=== PATIENT | female | born 1990 | race Caucasian/White ===

== ENCOUNTER → 2016-10-22 | Day surgery (SDC) | payer BC ==
[~2016-10-22] VITALS: Ht 165.1 cm; Wt 132.0 kg
[~2016-10-22] MED LIST: COLACE 100MG C100 MG PO; IBUPROFEN600 MG PO; NORCO 7.5-3251 EACH PO; NORETHINDRONE AC5 MG PO; PRILOSEC10 M1 PO
[2016-10-22 07:09] LABS: HEMOGLOBIN 14.4 gm/dl (12.3-15.3); RED BLOOD COUNT 4.79 M/UL (4.00-5.10)
== END | disposition home or self-care (01) ==
LOC: OR 06:34
PROVIDERS: Obstetrics & Gynecology
PROC: 0UB24ZZ Excision of Bilateral Ovaries, Percutaneous Endoscopic Approach (ICD-10-PCS; 2016-10-22)
PROC: 0DNW4ZZ Release Peritoneum, Percutaneous Endoscopic Approach (ICD-10-PCS; principal; 2016-10-22 08:00)
DX: N80.1 Endometriosis of ovary (principal); N80.0 Endometriosis of uterus; N73.6 Female pelvic peritoneal adhesions (postinfective); J45.909 Unspecified asthma, uncomplicated; E03.9 Hypothyroidism, unspecified; E66.9 Obesity, unspecified; G47.30 Sleep apnea, unspecified; Z88.2 Allergy status to sulfonamides; Z90.89 Acquired absence of other organs; Z68.42 Body mass index [BMI] 45.0-49.9, adult; Z86.69 Personal history of other diseases of the nervous system and sense organs; Z79.899 Other long term (current) drug therapy
CPT/HCPCS: 36415; 81001; 84703; 85025; J1100; J1885; J2250; J2270; J2405; J2710; J2795; J3010; J7120